=== PATIENT | male | born 1990 | race African-American/Black ===

== ENCOUNTER 2016-11-02 05:02 | Emergency (ER) | payer OTHER ==
[2016-11-02 06:07] VITALS: BMI 22.9
[2016-11-02] MEDS ORDERED: METHOCARBAMOL 500 MG TABLET PO ONE (07:35)
[2016-11-02] MEDS ORDERED: IBUPROFEN 600 MG TABLET (FP) PO ONE ×2 (07:35→08:35)
--- NOTE | 2016-11-02 07:36 | PDOC ---
History of Present Illness <Berta Catherine - Last Filed: 11/02/16 07:34> - General History Source: Patient Exam Limitations: No Limitations - History of Present Illness Initial Comments: 11/02/16 07:39 The patient is a 26-year-old male working at [employer], with a significant past medical history of asthma, who presents to the ED with two days of left-sided chest pain. The pt states that the pain begins at the left-side of his collarbone and radiates down to the left-side of his chest. His symptoms are worsened with movement of his left arm and with deep inspiration. Pts symptoms worsened yesterday while at work, but he denies any physical injuries. The patient denies any fever, chills, nausea, vomiting, diarrhea, or abdominal pain The patient denies any shortness of breath. <Radha Gr - Last Filed: 11/02/16 07:44> - General Chief Complaint: Pain, Acute Stated Complaint: PAIN Time Seen by Provider: 11/02/16 07:18 Past History - Past Medical History Asthma: Yes Cardiac Disorders: Yes (heart murmur) - Surgical History Abdominal Surgery: (HERNIA REPAIR) - Immunization History Immunization Up to Date: No - Psycho/Social/Smoking Cessation Hx Anxiety: No Suicidal Ideation: No Smoking Status: Yes Smoking History: Current every day smoker Have you smoked in the past 12 months: Yes Number of Cigarettes Smoked Daily: 3 Information on smoking cessation initiated: No 'Breaking Loose' booklet given: 12/01/13 Hx Alcohol Use: No Drug/Substance Use Hx: No Substance Use Type: None Hx Substance Use Treatment: No <Berta Catherine - Last Filed: 11/02/16 07:34> <Radha Gr - Last Filed: 11/02/16 07:44> - Past Medical History Allergies/Adverse Reactions: Allergies Allergy/AdvReac Type Severity Reaction Status Date / Time Penicillins Allergy Verified 11/02/16 05:58 Home Medications: Ambulatory Orders Ibuprofen [Motrin -] 600 mg PO TID PRN #21 tablet 11/02/16 Methocarbamol [Robaxin -] 500 mg PO BID PRN #14 tablet 11/02/16 Review of Systems - Review of Systems Able to Perform ROS?: Yes Comments:: 11/02/16 07:40 GENERAL/CONSTITUTIONAL: No fever or chills. No weakness. HEAD, EYES, EARS, NOSE AND THROAT: No change in vision. No ear pain or discharge. No sore throat. CARDIOVASCULAR: No shortness of breath. (+)Left-sided chest pain. RESPIRATORY: No cough, wheezing, or hemoptysis. GASTROINTESTINAL: No nausea, vomiting, diarrhea or constipation. GENITOURINARY: No dysuria, frequency, or change in urination. MUSCULOSKELETAL: No joint swelling or pain. No neck or back pain. SKIN: No rash NEUROLOGIC: No headache, vertigo, loss of consciousness, or change in strength/ sensation. ENDOCRINE: No increased thirst. No abnormal weight change. HEMATOLOGIC/LYMPHATIC: No anemia, easy bleeding, or history of blood clots. ALLERGIC/IMMUNOLOGIC: No hives or skin allergy. <Radha Gr - Last Filed: 11/02/16 07:44> *Physical Exam - Vital Signs Last Vital Signs Temp Pulse Resp BP Pulse Ox 98.0 F 76 18 123/79 98 11/02/16 05:54 11/02/16 05:54 11/02/16 05:54 11/02/16 05:54 11/02/16 05:54 - Physical Exam Comments: GENERAL: Awake, alert, and fully oriented, in no acute distress HEAD: No signs of trauma EYES: PERRLA, EOMI, sclera anicteric, conjunctiva clear ENT: Auricles normal inspection, hearing grossly normal, nares patent, oropharynx clear without exudates. Moist mucosa NECK: Normal ROM, supple, no lymphadenopathy, JVD, or masses LUNGS: Breath sounds equal, clear to auscultation bilaterally. No wheezes, and no crackles. +Tenderness to medial portion of L pec major muscle. HEART: Regular rate and rhythm, normal S1 and S2, no murmurs, rubs or gallops ABDOMEN: Soft, nontender, normoactive bowel sounds. No guarding, no rebound. No masses EXTREMITIES: Normal range of motion, no edema. No clubbing or cyanosis. No cords, erythema, or tenderness NEUROLOGICAL: Cranial nerves II through XII grossly intact. Normal speech, normal gait SKIN: Warm, Dry, normal turgor, no rashes or lesions noted. <Berta Catherine - Last Filed: 11/02/16 07:34> - Vital Signs Last Vital Signs Temp Pulse Resp BP Pulse Ox 98.0 F 68 16 125/78 100 11/02/16 07:37 11/02/16 07:37 11/02/16 07:37 11/02/16 07:37 11/02/16 07:37 <SimónRadha - Last Filed: 11/02/16 07:44> ED Treatment Course - RADIOLOGY Radiology Studies Ordered: 11/02/16 07:43 Chest X-Ray was reviewed by Dr. Catherine and over-read by Radiology. Impression: No acute pathology. If symptoms persist, further imaging may be of help. <Radha Gr - Last Filed: 11/02/16 07:44> *DC/Admit/Observation/Transfer - Discharge Dispostion Admit: No <Berta Catherine - Last Filed: 11/02/16 07:34> - Attestations Scribe Attestion: 11/02/16 07:41 Documentation prepared by Radha Gr, acting as certified medical coder for Berta Catherine MD. <Radha Gr - Last Filed: 11/02/16 07:44> Diagnosis at time of Disposition: Pectoralis muscle strain Qualifiers: Encounter type: initial encounter Qualified Code(s): S29.011A - Strain of muscle and tendon of front wall of thorax, initial encounter - Discharge Dispostion Disposition: HOME Condition at time of disposition: Stable - Prescriptions Prescriptions: Ibuprofen [Motrin -] 600 mg PO TID PRN #21 tablet PRN Reason: Pain Methocarbamol [Robaxin -] 500 mg PO BID PRN #14 tablet PRN Reason: Muscle Spasms - Referrals Referrals: Jaguar Denson MD [Primary Care Provider] - - Patient Instructions Printed Discharge Instructions: DI for Muscle Strain - Post Discharge Activity Work/School Note: Back to Work
[2016-11-02] MEDS ORDERED: METHOCARBAMOL 500 MG TABLET ONE (08:35)
[2016-11-02 08:43] VITALS: BP 122/78; PULSE 71; TEMP 97.7
--- NOTE | 2016-11-04 10:22 | EKG ---
Test Reason : Blood Pressure : / mmHG Vent. Rate : 071 BPM Atrial Rate : 071 BPM P-R Int : 194 ms QRS Dur : 102 ms QT Int : 370 ms P-R-T Axes : 079 065 019 degrees QTc Int : 402 ms NORMAL SINUS RHYTHM POSSIBLE LEFT VENTRICULAR HYPERTROPHY WITH QRS WIDENING AND REPOLARIZATION ABNORMALITY BORDERLINE ECG WHEN COMPARED WITH ECG OF 02-APR-2007 07:38, NO SIGNIFICANT CHANGE WAS FOUND Confirmed by ANIKET CARBAJAL, MILES ([id number]) on 11/04/2016 10:22:31 AM Referred By: Confirmed By:MILES MARCIAL MD
== END 2016-11-02 08:42 | disposition home or self-care (01) ==
LOC: SUPCPDRO 05:02 → JER 05:02
DX: S29.011A Strain of muscle and tendon of front wall of thorax, initial encounter (principal); X50.9XXA Other and unspecified overexertion or strenuous movements or postures, initial encounter; X50.0XXA Overexertion from strenuous movement or load, initial encounter; X50.3XXA Overexertion from repetitive movements, initial encounter; Y93.89 Activity, other specified; Y92.89 Other specified places as the place of occurrence of the external cause
CPT/HCPCS: 71010-TC; 71101-TC; 93005; 93010; 99283-25

== ENCOUNTER 2017-03-16 18:35 | Emergency (ER) | payer OTHER ==
[2017-03-16 18:43] VITALS: BP 134/78; PULSE 87; TEMP 98.4; BMI 27.1
--- NOTE | 2017-03-16 19:07 | PDOC ---
History of Present Illness - General Chief Complaint: Injury Stated Complaint: HAND INJURY Time Seen by Provider: 03/16/17 18:56 History Source: Patient Exam Limitations: No Limitations - History of Present Illness Initial Comments: 03/16/17 18:58 states punched wall last night. Has complaints of pain, swelling and mild immobility, unable to make fist with right hand. Used ice and ibuprofen with minimal resolved 03/16/17 19:07 Occurred: reports: this afternoon Severity: reports: moderate Pain Location: reports: upper extremity (right hand ) Method of Injury: Yes: direct blow Modifying Factors: improves with: cold therapy, pain medication Associated Symptoms (Fall): denies symptoms Past History - Travel Traveled outside of the country in the last 30 days: No Close contact w/someone who was outside of country & ill: No - Past Medical History Allergies/Adverse Reactions: Allergies Allergy/AdvReac Type Severity Reaction Status Date / Time Penicillins Allergy Verified 11/02/16 05:58 Home Medications: Ambulatory Orders Naproxen [Naprosyn -] 500 mg PO BID #14 tablet 03/16/17 Asthma: Yes Cardiac Disorders: Yes (heart murmur) - Surgical History Abdominal Surgery: (HERNIA REPAIR) - Immunization History Immunization Up to Date: No - Suicide/Smoking/Psychosocial Hx Smoking Status: Yes Smoking History: Current some day smoker Have you smoked in the past 12 months: Yes Number of Cigarettes Smoked Daily: 3 Information on smoking cessation initiated: No 'Breaking Loose' booklet given: 03/16/17 Hx Alcohol Use: No Drug/Substance Use Hx: No Substance Use Type: None Hx Substance Use Treatment: No Trauma Specific PMHX - Complaint Specific PMHX Back Injury: No Neck Injury: No Review of Systems - Review of Systems Able to Perform ROS?: Yes Is the patient limited Syriac proficient: Yes Constitutional: Yes: See HPI. No: Symptoms Reported HEENTM: No: Symptoms Reported Respiratory: No: Symptoms reported Musculoskeletal: Yes: Symptoms Reported, See HPI, Joint Pain (right hand ), Joint Swelling Neurological: Yes: See HPI. No: Symptoms reported, Numbness All Other Systems: Reviewed and Negative *Physical Exam - Vital Signs Last Vital Signs Temp Pulse Resp BP Pulse Ox 98.4 F 87 19 134/78 99 03/16/17 18:41 03/16/17 18:41 03/16/17 18:41 03/16/17 18:41 03/16/17 18:41 - Physical Exam General Appearance: Yes: Appropriately Dressed, Apparent Distress, Mild Distress HEENT: positive: VIC, Normal ENT Inspection, TMs Normal, Pharynx Normal Neck: positive: Supple. negative: Lymphadenopathy (R), Lymphadenopathy (L) Respiratory/Chest: positive: Lungs Clear, Normal Breath Sounds Musculoskeletal: negative: Normal Inspection Extremity: positive: Normal Capillary Refill. negative: Normal Inspection, Normal Range of Motion (limited secondary to pain and swelling with deformity to the lateral aspect of right hand and metacarpal bones. Neurovascular intact to fingers. Wrist pain or deformity) Integumentary: positive: Normal Color, Dry, Warm, Ecchymosis (to dorsum of hand) , Bruising Neurologic: positive: agency service representative II-XII NML intact, Fully Oriented, Alert, Normal Mood/ Affect, Normal Response, Motor Strength 5/5 Procedures - Splinting Splint Location: Right: Hand (ulnar gutter splint placed) Post-Proc Neuro Vasc Exam: normal, unchanged from pre-exam Rolando Bandage: 4" ED Treatment Course - RADIOLOGY Radiology Studies Ordered: Category Date Time Status HAND- RIGHT [RAD] Stat Radiology 03/16/17 18:57 Ordered Progress Note - Progress Note Progress Note: Proximal fifth metacarpal fracture clinically correlates, ulnar gutter splint made out of Ortho-Glass in sling provided with NSAIDs for pain relief. Patient will follow up with *DC/Admit/Observation/Transfer Diagnosis at time of Disposition: Fracture, boxers Qualifiers: Encounter type: initial encounter Fracture type: closed Qualified Code(s): S62.339A - Displaced fracture of neck of unspecified metacarpal bone, initial encounter for closed fracture - Discharge Dispostion Disposition: HOME Condition at time of disposition: Stable Admit: No - Referrals Referrals: Jaguar Denson MD [Primary Care Provider] - Guanaco Willams MD [Staff Physician] - - Patient Instructions Printed Discharge Instructions: How to Use a Sling, DI for Boxer's Fracture Additional Instructions: Rest, ice to area on and off for 15 minutes 4-6 times a day Avoid heavy lifting or exercise until pain and swelling is resolved or until further directed Keep area highly elevated to reduce swelling Use splints/Rolando wrap as directed Followup with orthopedist in one to 2 days if not improving, if significantly improved may wait one week for followup with orthopedist May use ibuprofen 2-200 mg tablets every 6 hours as needed for pain Dr. Alberto Loo has orthopedic clinic hours for Medicare/Medicaid Orthopedic referral patients Office is located on [address] [facility] ; call for appointment Clinic is open Friday from 9 AM to 12 noon and afternoon from to 4pm - Post Discharge Activity Forms/Work/School Notes: Back to Work
[2017-03-16] MEDS ORDERED: IBUPROFEN 600 MG TABLET (FP) PO ONE ×2 (19:53→19:56)
== END 2017-03-16 20:06 | disposition home or self-care (01) ==
LOC: JERFT 18:35
DX: S62.339A Displaced fracture of neck of unspecified metacarpal bone, initial encounter for closed fracture (principal); W22.8XXA Striking against or struck by other objects, initial encounter; Y93.9 Activity, unspecified; Y92.9 Unspecified place or not applicable; F17.210 Nicotine dependence, cigarettes, uncomplicated
CPT/HCPCS: 73130-TC-RT; 99281-25